=== PATIENT | male | born 1940 | race African-American/Black ===

== ENCOUNTER 2017-08-06 04:45 | Inpatient (IN) | payer OTHER, MEDICAID ==
[2017-08-06] VITALS (8 sets, daily range): BP systolic 105–154; BP diastolic 73–101
[~2017-08-06] VITALS: Ht 188 cm; Wt 78.0 kg
[~2017-08-06 04:45] MED LIST: PROAIR HFA8.5 GM INH
[2017-08-06] MEDS ORDERED: Solu-MEDROL 125mg Inj IVP ONE (05:00)
[2017-08-06] MEDS ORDERED: Nitroglycerin Subl 0.4mg tab SL PRN (05:00)
--- NOTE | 2017-08-06 05:02 | Emergency Room Report ---
History of Present Illness General Chief Complaint: Dyspnea/Respdistress Source: Patient (Leesa Parisi M.D.) Present Illness HPI 76-year-old male with history of COPD/asthma, p/w SOB for 1 day. Patient states SOB began at home. SOB occurs both at rest and on exertion. Also noted to be coughing. Denies any chest pain. Patient has been using albuterol inhaler twice a day Patient does not have nebulizer at home. No recent steroid use. Denies fever, chills. Denies sick contacts or recent travel. Patient denies history of ICU admissions, intubations, or usage of BIPAP for COPD. (Leesa Parisi M.D.) Allergies: Coded Allergies: NO KNOWN ALLERGIES (Unverified Allergy, Unknown, 12/25/14) Patient History Past Medical History: see triage record Past Surgical History: none Pertinent Family History: none Reviewed Nursing Documentation: PMH: Agreed; PSxH: Agreed (Leesa Parisi M.D. ) Nursing Documentation-PMH Past Medical History: No History, Except For Hx Asthma: Yes Hx Gastrointestinal Problems: No - Appendectomy when he was 7. (Leesa Parisi M.D.) Review of Systems All Other Systems: negative except mentioned in HPI (Leesa Parisi M.D.) Physical Exam Vital Signs Date Time Temp Pulse Resp B/P (MAP) Pulse Ox O2 Delivery O2 Flow Rate FiO2 08/06/17 04:36 97.9 97 25 143/104 94 Simple Mask 10.0 97.9 Sp02 EP Interpretation: reviewed, normal General Appearance: alert, GCS 15, non-toxic, moderate distress Head: normocephalic, atraumatic Eyes: bilateral eye normal inspection, bilateral eye PERRL, bilateral eye EOMI ENT: normal ENT inspection, normal pharynx, normal voice, moist mucus membranes Neck: normal inspection, full range of motion, supple Respiratory: respiratory distress, rales, speaking full sentences, wheezing Cardiovascular #1: normal inspection, regular rate, rhythm, normal capillary refill Cardiovascular #2: 2+ radial (R), 2+ radial (L) Gastrointestinal: normal inspection, non tender, soft, non-distended, no guarding Musculoskeletal: normal inspection, back normal, normal range of motion, non- tender Neurologic: normal inspection, alert, oriented x3, responsive, motor strength/ tone normal, sensory intact, normal gait, speech normal Psychiatric: normal inspection, judgement/insight normal, memory normal Skin: normal inspection, normal color, no rash, warm/dry, well hydrated, normal turgor (Leesa Parisi M.D.) Medical Decision Making Diagnostic Impression: Primary Impression: Respiratory distress Additional Impressions: Pneumonia CHF (congestive heart failure) Renal insufficiency Elevated troponin I level NSTEMI (non-ST elevated myocardial infarction) ER Course 76-year-old male with pmhx of COPD p/w SOB for 1 days. DDX: COPD exacerbation, CHF, ACS, pneumonia Plan: IV access, school bus monitor, O2 nasal cannula, EKG, CXR obtain basic labs including blood gas, troponin, Duonebs, steroids, consider mag, Will consider BIPAP for persistent or worsening respiratory status ER course: Bedside ultrasound performed by me, no pericardial effusion, bilateral B lines indicating pulmonary edema Nitroglycerin and Lasix given pt already feeling much better upon arrival to ED EKG is concerning however pt not having any cp, no comparison Signed out patient to Dr Castro 76 yo M with SOB - likely 2/2 to chf/pna -pending labs Disposition: Admission to [facility], Dr Fan covering Dr Pineda Please note that this Emergency Department Report was dictated using [employer] box operator technology software, occasionally this can lead to erroneous entry secondary to interpretation by the dictation equipment. EKG Diagnostic Results EP Interpretation: Yes Rate: normal Rhythm: NSR ST Segments: ST depressions and T-wave inversions noted in V4 V5 V6 ASA given to patient: Y Rhythm Strip EP Interpretation: Yes Rate: 90 Rhythm: NSR, no PVCs, no ectopy Chest X-ray CXR: Ordered: Yes 1 view Indication: SOB EP interpretation: Yes Interpretation: Cardiomegaly, pulmonary vascular congestion, possible right- sided infiltrate Impression: Cardiomegaly, pulmonary vascular congestion, possible right-sided infiltrate Electronically signed by Leesa Parisi MD (Leesa aPrisi M.D.) ER Course This patient was primarily seen by Dr. Parisi. Please see her note for full history and physical. There were some labs that were pending at the time I assumed care of this patient. The patient was awaiting admission for diagnosis of pneumonia and congestive heart failure. The patient's troponin came back elevated at 2.5. The patient does have renal insufficiency, however, I would not expect the patient's renal function to interfere with this test. The patient was given aspirin and Lovenox. I did call Dr. Ike raya educate him on this elevated troponin. The patient underwent a repeat EKG that was unchanged from the one from earlier. The EKG has persistent ST segment depressions consistent with a lateral location of ischemia. There is no older EKG available for comparison. I decided that given the patient's multiple comorbidities and chronic medical conditions that this patient should be upgraded to the ICU step down. This patient is critically ill. This patient required complex medical decision- making, aggressive intervention, extensive laboratory workup and monitoring. Critical care time: 35 minutes. Laboratory Tests Test 08/06/17 04:51 08/06/17 05:55 Arterial Blood pH 7.363 (7.350-7.450) Arterial Blood Partial Pressure CO2 45.9 mmHg (35.0-45.0) H Arterial Blood Partial Pressure O2 62.0 mmHg (75.0-100.0) L Arterial Blood HCO3 25.5 mmol/L (22.0-26.0) Arterial Blood Oxygen Saturation 91.1 % (92.0-98.0) L Arterial Blood Base Excess -0.2 John Test Positive White Blood Count 6.2 K/UL (4.8-10.8) Red Blood Count 4.83 M/UL (4.70-6.10) Hemoglobin 13.6 G/DL (14.2-18.0) L Hematocrit 41.3 % (42.0-52.0) L Mean Corpuscular Volume 86 FL (80-99) Mean Corpuscular Hemoglobin 28.1 PG (27.0-31.0) Mean Corpuscular Hemoglobin Concent 32.8 G/DL (32.0-36.0) Red Cell Distribution Width 12.6 % (11.6-14.8) Platelet Count 139 K/UL (150-450) L Mean Platelet Volume 11.3 FL (6.5-10.1) H Neutrophils (%) (Auto) 66.3 % (45.0-75.0) Lymphocytes (%) (Auto) 20.3 % (20.0-45.0) Monocytes (%) (Auto) 8.9 % (1.0-10.0) Eosinophils (%) (Auto) 3.6 % (0.0-3.0) H Basophils (%) (Auto) 0.9 % (0.0-2.0) Prothrombin Time 9.7 SEC (9.30-11.50) Prothrombin Time INR 0.9 (0.9-1.1) PTT 24 SEC (23-33) Urine Color Pale yellow Urine Appearance Clear Urine pH 5 (4.5-8.0) Urine Specific [place] 1.015 (1.005-1.035) Urine Protein 3+ (NEGATIVE) H Urine Glucose (UA) Negative (NEGATIVE) Urine Ketones Negative (NEGATIVE) Urine Occult Blood Negative (NEGATIVE) Urine Nitrite Negative (NEGATIVE) Urine Bilirubin Negative (NEGATIVE) Urine Urobilinogen Normal MG/DL (0.0-1.0) Urine Leukocyte Esterase Negative (NEGATIVE) Urine RBC 0-2 /HPF (0 - 0) H Urine WBC 0 /HPF (0 - 0) Urine Squamous Epithelial Cells Few /LPF (NONE/OCC) Urine Bacteria None /HPF (NONE) Sodium Level 142 MMOL/L (136-145) Potassium Level 3.9 MMOL/L (3.5-5.1) Chloride Level 105 MMOL/L (98-107) Carbon Dioxide Level 30 MMOL/L (21-32) Anion Gap 7 mmol/L (5-15) Blood Urea Nitrogen 41 mg/dL (7-18) H Creatinine 1.9 MG/DL (0.55-1.30) H Estimate Glomerular Filtration Rate mL/min (>60) Glucose Level 159 MG/DL (74-106) H Lactic Acid Level 1.30 mmol/L (0.66-2.22) Calcium Level 9.4 MG/DL (8.5-10.1) Total Bilirubin 0.4 MG/DL (0.2-1.0) Aspartate Amino Transferase (AST) 45 U/L (15-37) H Alanine Aminotransferase (ALT) 52 U/L (12-78) Alkaline Phosphatase 91 U/L (46-116) Troponin I 2.588 ng/mL (0.000-0.056) Pro-B-Type Natriuretic Peptide 4783 pg/mL (0-125) H Total Protein 7.1 G/DL (6.4-8.2) Albumin 3.5 G/DL (3.4-5.0) Globulin 3.6 g/dL Albumin/Globulin Ratio 1.0 (1.0-2.7) (CHRIS STEVENSON D.O.) EKG Diagnostic Results Rate: normal Rhythm: NSR ST Segments: other Other Impression ST segment depressions in leads I, II, V4, V5, V6 (CHRIS STEVENSON D.O.) Rhythm Strip Diag. Results EP Interpretation: yes Rate: 90's Rhythm: NSR, no PVC's, other - PAC's (CHRIS STEVENSON D.O.) Last Vital Signs Date Time Temp Pulse Resp B/P (MAP) Pulse Ox O2 Delivery O2 Flow Rate FiO2 08/06/17 04:43 97 25 Simple Mask 10.0 08/06/17 04:36 97.9 143/104 94 97.9 (Leesa Parisi M.D.) Disposition: ADMITTED INPATIENT Condition: Critical Leesa Parisi M.D. Aug 06, 2017 05:02 CHRIS STEVENSON D.O. Aug 06, 2017 07:26
[2017-08-06 06:13] LABS: APPEARANCE,URINE CLEAR; BASOPHILS % (AUTO) 0.9 % (0.0-2.0); BILIRUBIN, URINE NEGATIVE (NEGATIVE); COLOR,URINE PALE YELLOW; EOSINOPHILS % (AUTO) 3.6 % (0.0-3.0); GLUCOSE, URINE (UA) NEGATIVE (NEGATIVE); HEMATOCRIT 41.3 % (42.0-52.0); HEMOGLOBIN 13.6 G/DL (14.2-18.0); KETONES,URINE NEGATIVE (NEGATIVE); LEUKOCYTE ESTERASE ,URINE NEGATIVE (NEGATIVE); LYMPHOCYTES % (AUTO) 20.3 % (20.0-45.0); MEAN CORPUSCULAR VOLUME 86 FL (80-99); MONOCYTES % (AUTO) 8.9 % (1.0-10.0); NEUTROPHILS % (AUTO) 66.3 % (45.0-75.0); NITRITE,URINE NEGATIVE (NEGATIVE); PH,URINE 5 (4.5-8.0); PLATELET COUNT 139 K/UL (150-450); PROTEIN,URINE 3+ (NEGATIVE); RED BLOOD COUNT 4.83 M/UL (4.70-6.10); RED CELL DISTRIBUTION WIDTH 12.6 % (11.6-14.8); UROBILINOGEN,URINE NORMAL MG/DL (0.0-1.0); WHITE BLOOD COUNT 6.2 K/UL (4.8-10.8)
[2017-08-06 06:19] LABS: ANION GAP 7 mmol/L (5-15); BLOOD UREA NITROGEN 41 mg/dL (7-18); CALCIUM 9.4 MG/DL (8.5-10.1); CARBON DIOXIDE 30 MMOL/L (21-32); CHLORIDE 105 MMOL/L (98-107); CREATININE 1.9 MG/DL (0.55-1.30); POTASSIUM 3.9 MMOL/L (3.5-5.1); SODIUM 142 MMOL/L (136-145)
[2017-08-06 06:20] LABS: INR 0.9 (0.9-1.1)
[2017-08-06 06:29] LABS: ALANINE AMINOTRANSFERASE 52 U/L (12-78); ALBUMIN 3.5 G/DL (3.4-5.0); ALKALINE PHOSPHATASE 91 U/L (46-116); ASPARTATE AMINO TRANSFERASE 45 U/L (15-37); BILIRUBIN,TOTAL 0.4 MG/DL (0.2-1.0)
[2017-08-06] MEDS ORDERED: Enoxaparin 80mg Inj SUBQ ONE (07:00)
[2017-08-06] MEDS ORDERED: Aspirin Baby 81mg ORAL ONE (07:00)
[2017-08-06] MEDS ORDERED: Albuterol/Ipratropium 3ml neb HHN PRN (08:30)
[2017-08-06] MEDS ORDERED: Miralax 17gm pkt ORAL PRN (08:30)
[2017-08-06] MEDS ORDERED: Heparin 5000 units/ml inj SUBQ SCH (09:00)
[2017-08-06] MEDS: Pantoprazole Inj IV SCH (09:56)
[2017-08-06] MEDS: Aspirin Baby 81mg ORAL SCH (09:56)
[2017-08-06] MEDS: Docusate 100mg cap ORAL SCH ×2 (09:56→20:50)
--- NOTE | 2017-08-06 10:53 | Cardiac Electrophysiology PN ---
Subjective Subjective [id number] Objective Last 24 Hour Vital Signs Date Time Temp Pulse Resp B/P (MAP) Pulse Ox O2 Delivery O2 Flow Rate FiO2 08/06/17 10:00 97 20 122/92 97 Nasal Cannula 4.0 08/06/17 08:00 92 20 147/85 98 Nasal Cannula 4.0 08/06/17 07:00 101 20 136/90 96 Nasal Cannula 4.0 08/06/17 05:59 98.5 88 20 105/81 93 Nasal Cannula 4.0 98.5 08/06/17 05:05 143/104 08/06/17 04:43 97 25 Simple Mask 10.0 08/06/17 04:36 97.9 97 25 143/104 94 Simple Mask 10.0 97.9 Intake and Output 08/05/17 08/06/17 19:00 07:00 Output Total 560 ml Balance -560 ml Output Urine Total 560 ml # Voids 2 Laboratory Tests Test 08/06/17 04:51 08/06/17 05:55 Arterial Blood pH 7.363 (7.350-7.450) Arterial Blood Partial Pressure CO2 45.9 mmHg (35.0-45.0) H Arterial Blood Partial Pressure O2 62.0 mmHg (75.0-100.0) L Arterial Blood HCO3 25.5 mmol/L (22.0-26.0) Arterial Blood Oxygen Saturation 91.1 % (92.0-98.0) L Arterial Blood Base Excess -0.2 John Test Positive White Blood Count 6.2 K/UL (4.8-10.8) Red Blood Count 4.83 M/UL (4.70-6.10) Hemoglobin 13.6 G/DL (14.2-18.0) L Hematocrit 41.3 % (42.0-52.0) L Mean Corpuscular Volume 86 FL (80-99) Mean Corpuscular Hemoglobin 28.1 PG (27.0-31.0) Mean Corpuscular Hemoglobin Concent 32.8 G/DL (32.0-36.0) Red Cell Distribution Width 12.6 % (11.6-14.8) Platelet Count 139 K/UL (150-450) L Mean Platelet Volume 11.3 FL (6.5-10.1) H Neutrophils (%) (Auto) 66.3 % (45.0-75.0) Lymphocytes (%) (Auto) 20.3 % (20.0-45.0) Monocytes (%) (Auto) 8.9 % (1.0-10.0) Eosinophils (%) (Auto) 3.6 % (0.0-3.0) H Basophils (%) (Auto) 0.9 % (0.0-2.0) Prothrombin Time 9.7 SEC (9.30-11.50) Prothromb Time International Ratio 0.9 (0.9-1.1) Activated Partial Thromboplast Time 24 SEC (23-33) Urine Color Pale yellow Urine Appearance Clear Urine pH 5 (4.5-8.0) Urine Specific [place] 1.015 (1.005-1.035) Urine Protein 3+ (NEGATIVE) H Urine Glucose (UA) Negative (NEGATIVE) Urine Ketones Negative (NEGATIVE) Urine Occult Blood Negative (NEGATIVE) Urine Nitrite Negative (NEGATIVE) Urine Bilirubin Negative (NEGATIVE) Urine Urobilinogen Normal MG/DL (0.0-1.0) Urine Leukocyte Esterase Negative (NEGATIVE) Urine RBC 0-2 /HPF (0 - 0) H Urine WBC 0 /HPF (0 - 0) Urine Squamous Epithelial Cells Few /LPF (NONE/OCC) Urine Bacteria None /HPF (NONE) Sodium Level 142 MMOL/L (136-145) Potassium Level 3.9 MMOL/L (3.5-5.1) Chloride Level 105 MMOL/L (98-107) Carbon Dioxide Level 30 MMOL/L (21-32) Anion Gap 7 mmol/L (5-15) Blood Urea Nitrogen 41 mg/dL (7-18) H Creatinine 1.9 MG/DL (0.55-1.30) H Estimat Glomerular Filtration Rate mL/min (>60) Glucose Level 159 MG/DL (74-106) H Lactic Acid Level 1.30 mmol/L (0.66-2.22) Calcium Level 9.4 MG/DL (8.5-10.1) Total Bilirubin 0.4 MG/DL (0.2-1.0) Aspartate Amino Transf (AST/SGOT) 45 U/L (15-37) H Alanine Aminotransferase (ALT/SGPT) 52 U/L (12-78) Alkaline Phosphatase 91 U/L (46-116) Troponin I 2.588 ng/mL (0.000-0.056) Pro-B-Type Natriuretic Peptide 4783 pg/mL (0-125) H Total Protein 7.1 G/DL (6.4-8.2) Albumin 3.5 G/DL (3.4-5.0) Globulin 3.6 g/dL Albumin/Globulin Ratio 1.0 (1.0-2.7) Jovany Raphael MD Aug 06, 2017 10:53
--- NOTE | 2017-08-06 11:27 | Diagnostic Imaging Report ---
Indication: Chest pain Comparison: 08/04/2006 A single view chest radiograph was obtained. Findings: Patchy infiltrates versus asymmetric pulmonary edema demonstrated bilaterally. Please correlate clinically. The heart is enlarged. Bones are unremarkable. IMPRESSION: Patchy infiltrates versus CHF
[2017-08-06] MEDS: Albuterol/Ipratropium 3ml neb HHN SCH ×2 (13:24→19:49)
--- NOTE | 2017-08-06 16:28 | Consultation ---
Consult Note Assessment/Plan [facility] DICT # [id number] NUNU ARORA M.D. Aug 06, 2017 16:28
[2017-08-06 16:40] LABS: HEMATOCRIT 41.6 % (42.0-52.0); HEMOGLOBIN 13.9 G/DL (14.2-18.0); MEAN CORPUSCULAR VOLUME 84 FL (80-99); PLATELET COUNT 152 K/UL (150-450); RED BLOOD COUNT 4.93 M/UL (4.70-6.10); RED CELL DISTRIBUTION WIDTH 12.8 % (11.6-14.8); WHITE BLOOD COUNT 5.2 K/UL (4.8-10.8)
[2017-08-06 17:02] LABS: ANION GAP 8 mmol/L (5-15); BLOOD UREA NITROGEN 39 mg/dL (7-18); CALCIUM 9.7 MG/DL (8.5-10.1); CARBON DIOXIDE 31 MMOL/L (21-32); CHLORIDE 103 MMOL/L (98-107); CHOLESTEROL 162 MG/DL (< 200); HDL CHOLESTEROL 49 MG/DL (40-60); POTASSIUM 4.6 MMOL/L (3.5-5.1); SODIUM 142 MMOL/L (136-145); TRIGLYCERIDES 77 MG/DL (30-150)
--- NOTE | 2017-08-06 19:30 | Consultation ---
DATE OF CONSULTATION: 08/06/2017 CARDIOLOGY CONSULTATION CONSULTING PHYSICIAN: Jovany Raphael M.D. REFERRING PHYSICIAN: Heena Pineda M.D. REASON FOR CONSULTATION: Elevated troponin and abnormal electrocardiogram. HISTORY OF PRESENT ILLNESS: The patient is a 76-year-old -[place] gentleman with history of asthma and COPD on home oxygen as well as history of hypertension, whose last hospitalization that he says was more than 20 years ago for hernia surgery. 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 The patient came to the emergency for increasing shortness of breath at rest and on exertion and has been coughing. The patient came to the emergency room and noted to have elevated troponin of more than 2.5. His blood pressure was 143/104 and EKG shows sinus rhythm with ST-T wave abnormalities. At the time of my evaluation, the patient denies any chest pain, even though he is still short of breath. PAST MEDICAL HISTORY: Asthma and hypertension. PAST SURGICAL HISTORY: Appendectomy at age of 7. FAMILY HISTORY: Noncontributory. SOCIAL HISTORY: He lives at home. Does not smoke or drink alcohol. REVIEW OF SYSTEMS: Review of systems was performed and was negative other than what was mentioned in the history of present illness. PHYSICAL EXAMINATION: VITAL SIGNS: Blood pressure is 122/92, pulse is 97, respirations 18, and temperature 98.5 degrees. HEAD AND NECK: No JVD. LUNGS: Diffuse wheezing. CARDIOVASCULAR: Regular S1 and S2 with no gallop or murmur. ABDOMEN: Soft. EXTREMITIES: There is no pitting edema. LABORATORY AND DIAGNOSTIC DATA: Sodium 142, potassium 3.9, BUN of 41, creatinine 1.9, and glucose of 159. Troponin is 2.588. White count 6.2, hemoglobin 13.7, hematocrit 41.2, and platelet 139. ASSESSMENT AND PLAN: 1. Elevated troponin. The patient does not have any chest pain, however, shortness of breath could be angina equivalent. His EKG showed widespread ST-T wave abnormalities. In view of his asthma, avoid beta-blockers especially if he is wheezing. Continue aspirin and keep him on Lovenox until further troponins are available. The patient is also getting sublingual nitroglycerin. Add Lipitor to his medical regimen. Obviously, if the troponin levels become significantly elevated, the patient would need cardiac catheterization, but that would risk of developing renal failure in view of his current baseline creatinine is around 2. 2. Congestive heart failure. BNP of around 5000. We will continue Lasix 40 mg IV b.i.d. 3. Chronic obstructive pulmonary disease and asthma, on albuterol and Proventil. 4. Renal failure. Creatinine 1.9. The patient stated he has been taking ibuprofen for a long time and could be the cause of the patient's renal failure. Thank you very much, Dr. Pineda, for allowing me to participate in the care of this patient. Please do not hesitate to contact me for any questions regarding my evaluation. Jovany Raphael M.D. DR: YEYO JOB#: [id number] CC:
[2017-08-06] MEDS: Enoxaparin Sodium 300mg/3ml vial SUBQ SCH (20:49)
--- NOTE | 2017-08-06 22:30 | Consultation ---
DATE OF CONSULTATION: 08/06/2017 PULMONARY CONSULTATION CONSULTING PHYSICIAN: Mateo Pineda M.D. REFERRING PHYSICIAN: Mike Branch M.D. REASON FOR CONSULTATION: COPD exacerbation. HISTORY OF PRESENT ILLNESS: The patient is a 76-year-old male extensive former smoker with a history of asthma versus COPD, only on ProAir at home who presents with shortness of breath x1 day. He states he was in his usual state of health when all of a sudden he felt acute dyspnea with wheezing, no coughing, no rhinorrhea. No fevers or chills. No headache or dizziness. No PND or orthopnea. No edema. He used his ProAir inhaler without any relief so he came into the emergency department for further evaluation and management. In the ER, he has been afebrile. Vitals have been stable. He is saturating well on 3 to 4 liters. He did not have leukocytosis. His ABG was 7.36/45/62//. His troponins were positive initial was 2.5, followup was 1.8. He also had a creatinine of 1.9 with a BUN of 41. It is unclear if acute or chronic. His BNP was 4783. Urinalysis 3+ protein. Chest x-ray done in the emergency department showed patchy bilateral infiltrates concerning for pulmonary edema versus infectious infiltrates. The patient is currently on a treatment dose of low molecular weight heparin and is on Lasix 40 IV b.i.d. He is also on around the clock and p.r.n. DuoNebs as well as Levaquin for community-acquired pneumonia. PAST MEDICAL HISTORY: COPD versus asthma. (first diagnosed as a child, never hospitalized, quiescent as an adult, worsened by his smoking, currently treated with p.r.n. ProAir only). PAST SURGICAL HISTORY: Appendectomy. ALLERGIES: No known drug allergies. MEDICATIONS: Prior to admission, medications ProAir. SOCIAL HISTORY: Extensive smoker, quit six months ago. Lives alone. No drug or alcohol use. No pets. No recent travel. FAMILY HISTORY: Noncontributory. REVIEW OF SYSTEMS: Negative other than history of present illness. PHYSICAL EXAMINATION: VITAL SIGNS: Temperature 97.3, pulse 111, blood pressure 164/101, respiratory rate 20, saturating 90% on 4 liters. GENERAL: He is well-developed and well-nourished, in no acute distress. Awake, alert, and oriented x3. HEENT: Normocephalic and atraumatic. Oropharynx is clear with moist mucous membranes. NECK: Supple without lymphadenopathy or jugular venous distention. CHEST: Fairly clear with end-expiratory wheezing and bibasilar rales. HEART: Regular rate and rhythm. ABDOMEN: Soft, nontender, and nondistended. EXTREMITIES: No cyanosis or clubbing. There is trace edema. IMAGING: Chest x-ray study showed some bilateral patchy opacities and pulmonary vascular congestion. LABORATORY AND DIAGNOSTIC DATA: White count 6.2, hemoglobin 13.6, and platelet count 139. ABG, 7.36/45/62/25/91. INR is 0.9. Sodium 140, potassium 4, chloride 105, bicarbonate 30, BUN 41, creatinine 1.1. Calcium 9.4. Lactic acid 1.3, glucose 159, AST 45, ALT 52, alkaline phosphatase 91. Troponin 2.55, followup 1.83. BNP 4783. Total protein 7.1, albumin 3.5, globulin 3.0. ASSESSMENT: The patient is a 76-year-old male, extensive former smoker with a history of asthma versus COPD presenting with acute dyspnea likely secondary to acute decompensated heart failure versus an exacerbation of his underlying lung disease. I suspect the opacity seen on chest x-ray represent pulmonary edema and not true infectious infiltrate. He does have elevated cardiac biomarkers likely secondary to demand ischemia versus ACS. Venous thromboembolism is a possibility given the hypoxemia and acute onset but it is less likely. PROBLEM LIST: 1. Acute hypoxemic and hypercapnic respiratory failure. 2. Likely congestive heart failure admitted with acute decompensated heart failure. 3. Bilateral pulmonary opacities likely representing edema but cannot rule out infectious infiltrate. 4. Asthma versus COPD acute exacerbation. 5. Elevated cardiac biomarkers likely secondary to demand ischemia versus ACS. 6. Abnormal creatinine and likely NANCY, possible cardiorenal syndrome. TREATMENT PLAN: 1. Optimize pulmonary hygiene/mobilize as tolerated. 2. Titrate down FiO2 to keep saturations greater than 90%. 3. [id number] and p.r.n. DuoNebs. 4. We will start prednisone 60 mg p.o. daily (today is day 1). 5. Continue Levaquin for now (today is day 1) . 6. Monitor volumes and renal function, continue IV diuresis as tolerated. 7. Follow up echocardiogram. 8. Follow Cardiology recommendations. 9. We will need ischemia evaluation at some point. 10. Continue low-molecular weight heparin for treatment of ACS. 11. Aspiration precautions. 12. DVT prophylaxis. The patient is on anticoagulation. 13. We will check a D-dimer and a duplex of the lower extremities. 14. Will repeat chest x-ray in one to two days. If persistent infiltrates, we will obtain a CT scan of the chest. Dr. Branch, thank you for allowing me to assist in the care of your patient. If I may be of any assistance in the future, please do not hesitate to ask. Mateo Pineda M.D. DR: Elida JOB#: [id number] CC:
--- NOTE | 2017-08-06 23:30 | History and Physical ---
History of Present Illness General Date patient seen: Aug 06, 2017 Time patient seen: 15:22 Reason for Hospitalization: Dyspnea/Respdistress Present Illness HPI 76 y/o male with a PMH of asthma presented with SOB since yesterday. Patient was seen in the ED and EKG showed ST depressions and T wave inversions in the anterior leads. Troponin was also elevated to 2.5 and Cr was elevated to 1.9. Patient's BNP was 4083. CXR showed patchy bilateral infiltrates vs. CHF. Patient was also started on IV steroids, duonebs, and levaquin for asthma exacerbation due to PNA. Patient was started on lovenox as well for elevated troponins. Bedside ultrasound was performed which showed no pericardial effusion but pulmonary edema with bilateral B lines present. Patient was also given nitroglycerin and lasix for this. Patient was further stabilized and transferred to ICU step-down. At this time, patient denies any fevers, chills, chest pain, sob, nausea/vomiting, abdominal pain. Denies any history of kidney disease. Denies any surgeries in the past. Allergies: Coded Allergies: NO KNOWN ALLERGIES (Unverified Allergy, Unknown, 12/25/14) Medication History Scheduled Albuterol Sulfate* (Proair Hfa*), 2 PUFFS INH Q6H, (Reported) Patient History History Provided By: Patient Healthcare decision maker Resuscitation status Full Code Advanced Directive on File Review of Systems All Other Systems: negative except mentioned in HPI Physical Exam General Appearance: alert, mild distress HEENT: normocephalic, atraumatic Neck: non-tender, normal alignment, supple Respiratory/Chest: chest wall non-tender, lungs clear, normal breath sounds Cardiovascular/Chest: normal peripheral pulses, normal rate, regular rhythm Abdomen: normal bowel sounds, non tender, soft Extremities: normal range of motion, non-tender, normal inspection Skin Exam: normal pigmentation, warm/dry 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, no motor/sensory deficits, alert, oriented x 3 Last 24 Hour Vital Signs Date Time Temp Pulse Resp B/P (MAP) Pulse Ox O2 Delivery O2 Flow Rate FiO2 08/06/17 20:00 98.0 105 24 146/84 98 Nasal Cannula 3.0 98.0 08/06/17 19:59 102 18 99 Nasal Cannula 3.0 32 08/06/17 19:49 98 Nasal Cannula 3.0 32 08/06/17 19:49 102 18 98 Nasal Cannula 3.0 32 08/06/17 19:49 Nasal Cannula 3.0 32 08/06/17 19:03 102 08/06/17 16:00 85 08/06/17 16:00 97.5 91 20 135/83 100 Nasal Cannula 3.0 97.5 08/06/17 13:39 90 18 96 Nasal Cannula 3.0 32 08/06/17 13:34 98 3.0 08/06/17 13:24 90 18 Nasal Cannula 4.0 36 08/06/17 13:24 90 18 98 Nasal Cannula 4.0 36 08/06/17 12:00 97.7 97 18 138/73 98 Nasal Cannula 4.0 97.7 08/06/17 11:47 102 08/06/17 10:40 97.3 111 20 154/101 90 Nasal Cannula 4.0 97.3 08/06/17 10:30 98.5 97 20 122/92 97 Nasal Cannula 4.0 98.5 08/06/17 10:00 97 20 122/92 97 Nasal Cannula 4.0 08/06/17 08:00 92 20 147/85 98 Nasal Cannula 4.0 08/06/17 07:00 101 20 136/90 96 Nasal Cannula 4.0 08/06/17 05:59 98.5 88 20 105/81 93 Nasal Cannula 4.0 98.5 08/06/17 05:05 143/104 08/06/17 04:43 97 25 Simple Mask 10.0 08/06/17 04:36 97.9 97 25 143/104 94 Simple Mask 10.0 97.9 Intake and Output 08/05/17 08/06/17 19:00 07:00 Output Total 560 ml Balance -560 ml Output Urine Total 560 ml # Voids 2 Laboratory Tests Test 08/06/17 04:51 08/06/17 05:55 08/06/17 11:15 08/06/17 16:25 Arterial Blood pH 7.363 (7.350-7.450) Arterial Blood Partial Pressure CO2 45.9 mmHg (35.0-45.0) H Arterial Blood Partial Pressure O2 62.0 mmHg (75.0-100.0) L Arterial Blood HCO3 25.5 mmol/L (22.0-26.0) Arterial Blood Oxygen Saturation 91.1 % (92.0-98.0) L Arterial Blood Base Excess -0.2 John Test Positive White Blood Count 6.2 K/UL (4.8-10.8) 5.2 K/UL (4.8-10.8) Red Blood Count 4.83 M/UL (4.70-6.10) 4.93 M/UL (4.70-6.10) Hemoglobin 13.6 G/DL (14.2-18.0) L 13.9 G/DL (14.2-18.0) L Hematocrit 41.3 % (42.0-52.0) L 41.6 % (42.0-52.0) L Mean Corpuscular Volume 86 FL (80-99) 84 FL (80-99) Mean Corpuscular Hemoglobin 28.1 PG (27.0-31.0) 28.3 PG (27.0-31.0) Mean Corpuscular Hemoglobin Concent 32.8 G/DL (32.0-36.0) 33.5 G/DL (32.0-36.0) Red Cell Distribution Width 12.6 % (11.6-14.8) 12.8 % (11.6-14.8) Platelet Count 139 K/UL (150-450) L 152 K/UL (150-450) Mean Platelet Volume 11.3 FL (6.5-10.1) H 11.9 FL (6.5-10.1) H Neutrophils (%) (Auto) 66.3 % (45.0-75.0) % (45.0-75.0) Lymphocytes (%) (Auto) 20.3 % (20.0-45.0) % (20.0-45.0) Monocytes (%) (Auto) 8.9 % (1.0-10.0) % (1.0-10.0) Eosinophils (%) (Auto) 3.6 % (0.0-3.0) H % (0.0-3.0) Basophils (%) (Auto) 0.9 % (0.0-2.0) % (0.0-2.0) Prothrombin Time 9.7 SEC (9.30-11.50) Prothromb Time International Ratio 0.9 (0.9-1.1) Activated Partial Thromboplast Time 24 SEC (23-33) Urine Color Pale yellow Urine Appearance Clear Urine pH 5 (4.5-8.0) Urine Specific [place] 1.015 (1.005-1.035) Urine Protein 3+ (NEGATIVE) H Urine Glucose (UA) Negative (NEGATIVE) Urine Ketones Negative (NEGATIVE) Urine Occult Blood Negative (NEGATIVE) Urine Nitrite Negative (NEGATIVE) Urine Bilirubin Negative (NEGATIVE) Urine Urobilinogen Normal MG/DL (0.0-1.0) Urine Leukocyte Esterase Negative (NEGATIVE) Urine RBC 0-2 /HPF (0 - 0) H Urine WBC 0 /HPF (0 - 0) Urine Squamous Epithelial Cells Few /LPF (NONE/OCC) Urine Bacteria None /HPF (NONE) Sodium Level 142 MMOL/L (136-145) 142 MMOL/L (136-145) Potassium Level 3.9 MMOL/L (3.5-5.1) 4.6 MMOL/L (3.5-5.1) Chloride Level 105 MMOL/L (98-107) 103 MMOL/L (98-107) Carbon Dioxide Level 30 MMOL/L (21-32) 31 MMOL/L (21-32) Anion Gap 7 mmol/L (5-15) 8 mmol/L (5-15) Blood Urea Nitrogen 41 mg/dL (7-18) H 39 mg/dL (7-18) H Creatinine 1.9 MG/DL (0.55-1.30) H 2.0 MG/DL (0.55-1.30) H Estimat Glomerular Filtration Rate mL/min (>60) mL/min (>60) Glucose Level 159 MG/DL (74-106) H 219 MG/DL (74-106) H Lactic Acid Level 1.30 mmol/L (0.66-2.22) Calcium Level 9.4 MG/DL (8.5-10.1) 9.7 MG/DL (8.5-10.1) Total Bilirubin 0.4 MG/DL (0.2-1.0) Aspartate Amino Transf (AST/SGOT) 45 U/L (15-37) H Alanine Aminotransferase (ALT/SGPT) 52 U/L (12-78) Alkaline Phosphatase 91 U/L (46-116) Troponin I 2.588 ng/mL (0.000-0.056) 1.835 ng/mL (0.000-0.056) Pro-B-Type Natriuretic Peptide 4783 pg/mL (0-125) H Total Protein 7.1 G/DL (6.4-8.2) Albumin 3.5 G/DL (3.4-5.0) Globulin 3.6 g/dL Albumin/Globulin Ratio 1.0 (1.0-2.7) Differential Total Cells Counted 100 Neutrophils % (Manual) 90 % (45-75) H Lymphocytes % (Manual) 6 % (20-45) L Monocytes % (Manual) 2 % (1-10) Eosinophils % (Manual) 0 % (0-3) Basophils % (Manual) 0 % (0-2) Band Neutrophils 2 % (0-8) Platelet Estimate Adequate Platelet Morphology Normal Red Blood Cell Morphology Normal Hemoglobin A1c 6.4 % (4.3-6.0) H Magnesium Level 1.8 MG/DL (1.8-2.4) Triglycerides Level 77 MG/DL (30-150) Cholesterol Level 162 MG/DL (< 200) LDL Cholesterol 103 mg/dL (<100) H HDL Cholesterol 49 MG/DL (40-60) Cholesterol/HDL Ratio 3.3 (3.3-4.4) Thyroid Stimulating Hormone (TSH) 0.588 uiU/mL (0.358-3.740) Test 08/06/17 19:00 D-Dimer 0.29 mg/L FEU (0.00-0.49) Troponin I 1.723 ng/mL (0.000-0.056) Height (Feet): 6 Height (Inches): 2.00 Weight (Pounds): 178 Medications Current Medications Medications (Trade) Dose Ordered Sig/Yash Route PRN Reason Start Time Stop Time Status Last Admin Dose Admin Acetaminophen (Tylenol) 650 mg Q4H PRN ORAL Mild Pain (Pain Scale 1-3) 08/06/17 08:30 09/05/17 08:29 Acetaminophen (Tylenol) 650 mg Q4H PRN ORAL fever (temp>100.5F) 08/06/17 08:30 09/05/17 08:29 Albuterol/ Ipratropium (Albuterol/ Ipratropium) 3 ml Q2H PRN HHN Shortness of Breath 08/06/17 08:30 08/11/17 08:29 Albuterol/ Ipratropium (Albuterol/ Ipratropium) 3 ml Q6HRT HHN 08/06/17 13:00 08/11/17 12:59 08/06/17 19:49 Aspirin (ASA) 81 mg DAILY ORAL 08/06/17 09:00 09/05/17 08:59 08/06/17 09:56 Bisacodyl (Dulcolax) 10 mg DAILYPRN PRN RECTAL Constipation 08/06/17 08:30 09/05/17 08:29 Dextrose (Dextrose 50%) 25 ml STAT PRN IV Hypoglycemia 08/06/17 08:30 09/05/17 08:29 Dextrose (Dextrose 50%) 50 ml STAT PRN IV Hypoglycemia 08/06/17 08:30 09/05/17 08:29 Docusate Sodium (Colace) 100 mg EVERY 12 HOURS ORAL 08/06/17 09:00 09/05/17 08:59 08/06/17 20:50 Enoxaparin Sodium (Lovenox) 90 mg Q12HR SUBQ 08/06/17 19:30 09/05/17 19:29 08/06/17 20:49 Furosemide (Lasix) 40 mg EVERY 12 HOURS IV 08/06/17 12:00 09/05/17 11:59 08/06/17 20:50 Ondansetron HCl (Zofran) 4 mg Q6H PRN IVP Nausea & Vomiting 08/06/17 08:30 09/05/17 08:29 Pantoprazole (Protonix) 40 mg DAILY IV 08/06/17 09:00 09/05/17 08:59 08/06/17 09:56 Polyethylene Glycol (Miralax) 17 gm DAILYPRN PRN ORAL Constipation 08/06/17 08:30 09/05/17 08:29 Assessment/Plan Problem List: (1) NSTEMI (non-ST elevated myocardial infarction) ICD Codes: I21.4 - Non-ST elevation (NSTEMI) myocardial infarction SNOMED: 798535279 (2) Pneumonia ICD Codes: J18.9 - Pneumonia, unspecified organism SNOMED: 440996594 (3) Elevated troponin I level ICD Codes: R74.8 - Abnormal levels of other serum enzymes SNOMED: 806836635 (4) Acute kidney injury ICD Codes: N17.9 - Acute kidney failure, unspecified SNOMED: 94451137 (5) Acute systolic congestive heart failure ICD Codes: I50.21 - Acute systolic (congestive) heart failure SNOMED: 73481796, 931860155 (6) Pulmonary hypertension ICD Codes: I27.20 - Pulmonary hypertension, unspecified SNOMED: 60249765 (7) Asthma exacerbation ICD Codes: J45.901 - Unspecified asthma with (acute) exacerbation SNOMED: 264926158 (8) Acute respiratory failure with hypoxia ICD Codes: J96.01 - Acute respiratory failure with hypoxia SNOMED: 73633904, 483070422 Status: stable, progressing Assessment/Plan - Admit to inpatient - Pulm and cards consulted. Appreciate rec's - EKG with ST depressions and T wave inversions in leads V4, 5, 6 - Trend trops 2.5 --> 1.8. - continue lovenox for anticoagulation - s/p nitroglycerin for pulmonary edema - f/u CATRINA - IV lasix 40mg BID. monitor urine output and watch Cr closely - Trend Cr 1.9 --> - lactic acid 1.9 - f/u blood cultures. UA culture - CXR showing patchy infiltrates vs. CHF. f/u serial CXR - s/p IV methylprednisolone 125mg. continue IV solumedrol 60mg and taper per pulm - IV levaquin - duonebs - O2 prn to maintain O2 sat > 92% - ABGs prn DVT ppx: on lovenox for [place] Once the patient is medically stable, I anticipate the patient to be discharged to: home with home health Total time spent: 70 minutes More than 50% of the time was spent in care and coordination of the patient. Case was d/w patient, RN, all consultants. Reena Stephenson N.P. Aug 06, 2017 23:30
[2017-08-07] VITALS: BP 147/87
[2017-08-07] MEDS: Albuterol/Ipratropium 3ml neb HHN SCH ×2 (02:12→08:17)
[2017-08-07 03:59] LABS: HEMATOCRIT 39.8 % (42.0-52.0); HEMOGLOBIN 13.6 G/DL (14.2-18.0); MEAN CORPUSCULAR VOLUME 85 FL (80-99); PLATELET COUNT 147 K/UL (150-450); RED BLOOD COUNT 4.71 M/UL (4.70-6.10); RED CELL DISTRIBUTION WIDTH 12.5 % (11.6-14.8); WHITE BLOOD COUNT 5.8 K/UL (4.8-10.8)
[2017-08-07 04:00] VITALS: BP 140/81
[2017-08-07 04:26] LABS: ANION GAP 11 mmol/L (5-15); BLOOD UREA NITROGEN 47 mg/dL (7-18); CALCIUM 9.4 MG/DL (8.5-10.1); CARBON DIOXIDE 29 MMOL/L (21-32); CHLORIDE 100 MMOL/L (98-107); CREATININE 2.6 MG/DL (0.55-1.30); SODIUM 140 MMOL/L (136-145)
[2017-08-07 08:00] VITALS: BP 141/89
--- NOTE | 2017-08-07 08:46 | Pulmonology Progress Note ---
Assessment/Plan Assessment/Plan ASSESSMENT: The patient is a 76-year-old male, extensive former smoker with a history of asthma versus COPD presenting with acute dyspnea likely secondary to acute decompensated heart failure versus an exacerbation of his underlying lung disease. PROBLEM LIST: 1. Acute hypoxemic and hypercapnic respiratory failure. 2. Likely congestive heart failure admitted with acute decompensated heart failure. 3. Bilateral pulmonary opacities, edema vs infectious infiltrate. 4. Asthma versus COPD acute exacerbation. 5. Elevated cardiac biomarkers likely secondary to demand ischemia versus ACS. 6. Abnormal creatinine and likely NANCY, possible cardiorenal syndrome. TREATMENT PLAN: 1. Optimize pulmonary hygiene/mobilize as tolerated. 2. Titrate down FiO2 to keep saturations greater than 90%. 3. Change DUOnebs to Levalbuterol and Atrovent 4. D/C Pred, start SM 60 IV BID and taper 5. Continue Levaquin for now (D2) . 6. Monitor volumes and renal function, continue Lasix for now 7. Follow up echocardiogram. 8. Follow Cardiology recommendations. 9. We will need ischemia evaluation at some point. 10. Continue low-molecular weight heparin for treatment of ACS. 11. Aspiration precautions. 12. DVT prophylaxis. The patient is on anticoagulation. 13. F/U D-dimer and a duplex of the lower extremities. 14. CT chest Subjective Allergies: Coded Allergies: NO KNOWN ALLERGIES (Unverified Allergy, Unknown, 12/25/14) Subjective AFVSS, stable O2 needs, did not use BiPAP O/N Less cough, less wheezing, less SOB, no F/C Cr 2.6, trops downtrending Objective Last 24 Hour Vital Signs Date Time Temp Pulse Resp B/P (MAP) Pulse Ox O2 Delivery O2 Flow Rate FiO2 08/07/17 08:17 105 20 98 Nasal Cannula 3.0 32 08/07/17 08:15 98 Nasal Cannula 3.0 32 08/07/17 08:14 Nasal Cannula 3.0 32 08/07/17 04:00 96.8 104 20 140/81 94 Nasal Cannula 3.0 96.8 08/07/17 03:41 106 08/07/17 02:12 Room Air 08/07/17 02:12 Room Air 08/07/17 00:00 97.9 100 24 147/87 97 Nasal Cannula 3.0 97.9 08/07/17 00:00 97 08/06/17 23:11 Facial 35 08/06/17 20:00 98.0 105 24 146/84 98 Nasal Cannula 3.0 98.0 08/06/17 19:59 102 18 99 Nasal Cannula 3.0 32 08/06/17 19:49 98 Nasal Cannula 3.0 32 08/06/17 19:49 102 18 98 Nasal Cannula 3.0 32 08/06/17 19:49 Nasal Cannula 3.0 32 08/06/17 19:03 102 08/06/17 16:00 85 08/06/17 16:00 97.5 91 20 135/83 100 Nasal Cannula 3.0 97.5 08/06/17 13:39 90 18 96 Nasal Cannula 3.0 32 08/06/17 13:34 98 3.0 08/06/17 13:24 90 18 Nasal Cannula 4.0 36 08/06/17 13:24 90 18 98 Nasal Cannula 4.0 36 08/06/17 12:00 97.7 97 18 138/73 98 Nasal Cannula 4.0 97.7 08/06/17 11:47 102 08/06/17 10:40 97.3 111 20 154/101 90 Nasal Cannula 4.0 97.3 08/06/17 10:30 98.5 97 20 122/92 97 Nasal Cannula 4.0 98.5 08/06/17 10:00 97 20 122/92 97 Nasal Cannula 4.0 Intake and Output 08/06/17 08/07/17 19:00 07:00 Intake Total 300 ml 150 ml Output Total 1775 ml 950 ml Balance -1475 ml -800 ml Intake Oral 300 ml 150 ml Output Urine Total 1775 ml 950 ml # Voids 2 # Bowel Movements 1 General Appearance: WD/WN, no acute distress HEENT: normocephalic, atraumatic, anicteric, mucous membranes moist Respiratory/Chest: rhonchi - scattered with BiB rales Cardiovascular: normal peripheral pulses, normal rate, regular rhythm, regularly irregular Abdomen: normal bowel sounds, soft, non tender, no organomegaly, non distended Extremities: no cyanosis, no clubbing, no edema Laboratory Tests 08/06/17 11:15: Troponin I 1.835H 08/06/17 16:25: White Blood Count 5.2, Red Blood Count 4.93, Hemoglobin 13.9L, Hematocrit 41.6L , Mean Corpuscular Volume 84, Mean Corpuscular Hemoglobin 28.3, Mean Corpuscular Hemoglobin Concent 33.5, Red Cell Distribution Width 12.8, Platelet Count 152, Mean Platelet Volume 11.9H, Neutrophils (%) (Auto) , Lymphocytes (%) (Auto) , Monocytes (%) (Auto) , Eosinophils (%) (Auto) , Basophils (%) (Auto) , Differential Total Cells Counted 100, Neutrophils % (Manual) 90H, Lymphocytes % (Manual) 6L, Monocytes % (Manual) 2, Eosinophils % (Manual) 0, Basophils % ( Manual) 0, Band Neutrophils 2, Platelet Estimate Adequate, Platelet Morphology Normal, Red Blood Cell Morphology Normal, Sodium Level 142, Potassium Level 4.6 , Chloride Level 103, Carbon Dioxide Level 31, Anion Gap 8, Blood Urea Nitrogen 39H, Creatinine 2.0H, Estimat Glomerular Filtration Rate , Glucose Level 219H, Hemoglobin A1c 6.4H, Calcium Level 9.7, Magnesium Level 1.8, Triglycerides Level 77, Cholesterol Level 162, LDL Cholesterol 103H, HDL Cholesterol 49, Cholesterol/HDL Ratio 3.3, Thyroid Stimulating Hormone (TSH) 0.588 08/06/17 19:00: Troponin I 1.723H, D-Dimer 0.29 08/07/17 03:00: Troponin I 1.672H, White Blood Count 5.8, Red Blood Count 4.71, Hemoglobin 13.6L , Hematocrit 39.8L, Mean Corpuscular Volume 85, Mean Corpuscular Hemoglobin 28.8 , Mean Corpuscular Hemoglobin Concent 34.1, Red Cell Distribution Width 12.5, Platelet Count 147L, Mean Platelet Volume 10.6H, Neutrophils (%) (Auto) , Lymphocytes (%) (Auto) , Monocytes (%) (Auto) , Eosinophils (%) (Auto) , Basophils (%) (Auto) , Sodium Level 140, Potassium Level 4.0, Chloride Level 100 , Carbon Dioxide Level 29, Anion Gap 11, Blood Urea Nitrogen 47H, Creatinine 2.6H, Estimat Glomerular Filtration Rate , Glucose Level 201H, Calcium Level 9.4 , Magnesium Level 1.5L, Pro-B-Type Natriuretic Peptide 5877H Current Medications Medications (Trade) Dose Ordered Sig/Yash Route PRN Reason Start Time Stop Time Status Last Admin Dose Admin Acetaminophen (Tylenol) 650 mg Q4H PRN ORAL Mild Pain (Pain Scale 1-3) 08/06/17 08:30 09/05/17 08:29 Acetaminophen (Tylenol) 650 mg Q4H PRN ORAL fever (temp>100.5F) 08/06/17 08:30 09/05/17 08:29 Albuterol/ Ipratropium (Albuterol/ Ipratropium) 3 ml Q2H PRN HHN Shortness of Breath 08/06/17 08:30 08/11/17 08:29 Aspirin (ASA) 81 mg DAILY ORAL 08/06/17 09:00 09/05/17 08:59 08/06/17 09:56 Bisacodyl (Dulcolax) 10 mg DAILYPRN PRN RECTAL Constipation 08/06/17 08:30 09/05/17 08:29 Dextrose (Dextrose 50%) 25 ml STAT PRN IV Hypoglycemia 08/06/17 08:30 09/05/17 08:29 Dextrose (Dextrose 50%) 50 ml STAT PRN IV Hypoglycemia 08/06/17 08:30 09/05/17 08:29 Docusate Sodium (Colace) 100 mg EVERY 12 HOURS ORAL 08/06/17 09:00 09/05/17 08:59 08/06/17 20:50 Enoxaparin Sodium (Lovenox) 90 mg Q12HR SUBQ 08/06/17 19:30 09/05/17 19:29 08/06/17 20:49 Furosemide (Lasix) 40 mg EVERY 12 HOURS IV 08/06/17 12:00 09/05/17 11:59 08/06/17 20:50 Levalbuterol HCl (Xopenex) 1.25 mg Q6HRT HHN 08/07/17 12:00 08/12/17 11:59 Ondansetron HCl (Zofran) 4 mg Q6H PRN IVP Nausea & Vomiting 08/06/17 08:30 09/05/17 08:29 Pantoprazole (Protonix) 40 mg DAILY IV 08/06/17 09:00 09/05/17 08:59 08/06/17 09:56 Polyethylene Glycol (Miralax) 17 gm DAILYPRN PRN ORAL Constipation 4/12/18 08:30 09/05/17 08:29 NUNU ARORA M.D. Aug 07, 2017 08:46
[2017-08-07] MEDS ORDERED: Solu-MEDROL 125mg Inj IVP SCH (09:30)
[2017-08-07] MEDS ORDERED: LORazepam Inj 2mg/ml 1ml IV PRN (09:30)
[2017-08-07] MEDS: Pantoprazole Inj IV SCH (10:30)
[2017-08-07] MEDS: Docusate 100mg cap ORAL SCH (10:30)
[2017-08-07] MEDS: Enoxaparin Sodium 300mg/3ml vial SUBQ SCH (10:30)
[2017-08-07] MEDS: Aspirin Baby 81mg ORAL SCH (10:30)
[2017-08-07] MEDS ORDERED: Levalbuterol Inh UD 1.25mg/0.5ml HHN SCH (12:00)
--- NOTE | 2017-08-07 12:46 | Consultation ---
History of Present Illness General Date patient seen: Aug 06, 2017 Chief Complaint: Dyspnea/Respdistress Present Illness HPI 76 y/o male with a PMH of asthma presented with SOB since yesterday. Patient was seen in the ED and EKG showed ST depressions and T wave inversions in the anterior leads. the pt wa having waxing and waning of consciousness and yelling Allergies: Coded Allergies: NO KNOWN ALLERGIES (Unverified Allergy, Unknown, 12/25/14) Medication History Scheduled Albuterol Sulfate* (Proair Hfa*), 2 PUFFS INH Q6H, (Reported) Patient History Limited by: medical condition History Provided By: Patient, Medical Record, PMD Healthcare decision maker Resuscitation status Full Code Advanced Directive on File Past Medical/Surgical History Past Medical/Surgical History: (1) Episode of generalized weakness (2) Episode of generalized weakness (3) Pulmonary hypertension (4) Acute systolic congestive heart failure (5) Asthma exacerbation (6) Acute kidney injury (7) Acute respiratory failure with hypoxia Review of Systems Psychiatric: Reports: prior hx, anxiety, depressed feelings Physical Exam General Appearance: no apparent distress, alert, confused, agitated Last 24 Hour Vital Signs Date Time Temp Pulse Resp B/P (MAP) Pulse Ox O2 Delivery O2 Flow Rate FiO2 08/07/17 08:27 105 20 98 Nasal Cannula 3.0 32 08/07/17 08:17 105 20 98 Nasal Cannula 3.0 32 08/07/17 08:15 98 Nasal Cannula 3.0 32 08/07/17 08:14 Nasal Cannula 3.0 32 08/07/17 08:00 99.0 101 19 141/89 99 Nasal Cannula 2.0 99.0 08/07/17 07:53 122 08/07/17 04:00 96.8 104 20 140/81 94 Nasal Cannula 3.0 96.8 08/07/17 03:41 106 08/07/17 02:12 Room Air 08/07/17 02:12 Room Air 08/07/17 00:00 97.9 100 24 147/87 97 Nasal Cannula 3.0 97.9 08/07/17 00:00 97 08/06/17 23:11 Facial 35 08/06/17 20:00 98.0 105 24 146/84 98 Nasal Cannula 3.0 98.0 08/06/17 19:59 102 18 99 Nasal Cannula 3.0 32 08/06/17 19:49 98 Nasal Cannula 3.0 32 08/06/17 19:49 102 18 98 Nasal Cannula 3.0 32 08/06/17 19:49 Nasal Cannula 3.0 32 08/06/17 19:03 102 08/06/17 16:00 85 08/06/17 16:00 97.5 91 20 135/83 100 Nasal Cannula 3.0 97.5 08/06/17 13:39 90 18 96 Nasal Cannula 3.0 32 08/06/17 13:34 98 3.0 08/06/17 13:24 18 Nasal Cannula 4.0 36 08/06/17 13:24 90 18 98 Nasal Cannula 4.0 36 Intake and Output 08/06/17 08/07/17 19:00 07:00 Intake Total 300 ml 150 ml Output Total 1775 ml 950 ml Balance -1475 ml -800 ml Intake Oral 300 ml 150 ml Output Urine Total 1775 ml 950 ml # Voids 2 # Bowel Movements 1 Laboratory Tests Test 08/06/17 16:25 08/06/17 19:00 08/07/17 03:00 08/07/17 08:50 White Blood Count 5.2 K/UL (4.8-10.8) 5.8 K/UL (4.8-10.8) Red Blood Count 4.93 M/UL (4.70-6.10) 4.71 M/UL (4.70-6.10) Hemoglobin 13.9 G/DL (14.2-18.0) L 13.6 G/DL (14.2-18.0) L Hematocrit 41.6 % (42.0-52.0) L 39.8 % (42.0-52.0) L Mean Corpuscular Volume 84 FL (80-99) 85 FL (80-99) Mean Corpuscular Hemoglobin 28.3 PG (27.0-31.0) 28.8 PG (27.0-31.0) Mean Corpuscular Hemoglobin Concent 33.5 G/DL (32.0-36.0) 34.1 G/DL (32.0-36.0) Red Cell Distribution Width 12.8 % (11.6-14.8) 12.5 % (11.6-14.8) Platelet Count 152 K/UL (150-450) 147 K/UL (150-450) L Mean Platelet Volume 11.9 FL (6.5-10.1) H 10.6 FL (6.5-10.1) H Neutrophils (%) (Auto) % (45.0-75.0) % (45.0-75.0) Lymphocytes (%) (Auto) % (20.0-45.0) % (20.0-45.0) Monocytes (%) (Auto) % (1.0-10.0) % (1.0-10.0) Eosinophils (%) (Auto) % (0.0-3.0) % (0.0-3.0) Basophils (%) (Auto) % (0.0-2.0) % (0.0-2.0) Differential Total Cells Counted 100 Neutrophils % (Manual) 90 % (45-75) H Lymphocytes % (Manual) 6 % (20-45) L Monocytes % (Manual) 2 % (1-10) Eosinophils % (Manual) 0 % (0-3) Basophils % (Manual) 0 % (0-2) Band Neutrophils 2 % (0-8) Platelet Estimate Adequate Platelet Morphology Normal Red Blood Cell Morphology Normal Sodium Level 142 MMOL/L (136-145) 140 MMOL/L (136-145) Potassium Level 4.6 MMOL/L (3.5-5.1) 4.0 MMOL/L (3.5-5.1) Chloride Level 103 MMOL/L (98-107) 100 MMOL/L (98-107) Carbon Dioxide Level 31 MMOL/L (21-32) 29 MMOL/L (21-32) Anion Gap 8 mmol/L (5-15) 11 mmol/L (5-15) Blood Urea Nitrogen 39 mg/dL (7-18) H 47 mg/dL (7-18) H Creatinine 2.0 MG/DL (0.55-1.30) H 2.6 MG/DL (0.55-1.30) H Estimat Glomerular Filtration Rate mL/min (>60) mL/min (>60) Glucose Level 219 MG/DL (74-106) H 201 MG/DL (74-106) H Hemoglobin A1c 6.4 % (4.3-6.0) H Calcium Level 9.7 MG/DL (8.5-10.1) 9.4 MG/DL (8.5-10.1) Magnesium Level 1.8 MG/DL (1.8-2.4) 1.5 MG/DL (1.8-2.4) L Triglycerides Level 77 MG/DL (30-150) Cholesterol Level 162 MG/DL (< 200) LDL Cholesterol 103 mg/dL (<100) H HDL Cholesterol 49 MG/DL (40-60) Cholesterol/HDL Ratio 3.3 (3.3-4.4) Thyroid Stimulating Hormone (TSH) 0.588 uiU/mL (0.358-3.740) D-Dimer 0.29 mg/L FEU (0.00-0.49) Troponin I 1.723 ng/mL (0.000-0.056) 1.672 ng/mL (0.000-0.056) Pro-B-Type Natriuretic Peptide 5877 pg/mL (0-125) H Arterial Blood pH 7.390 (7.350-7.450) Arterial Blood Partial Pressure CO2 42.6 mmHg (35.0-45.0) Arterial Blood Partial Pressure O2 76.9 mmHg (75.0-100.0) Arterial Blood HCO3 25.5 mmol/L (22.0-26.0) Arterial Blood Oxygen Saturation 95.1 % (92.0-98.0) Arterial Blood Base Excess 0.4 John Test Positive Height (Feet): 6 Height (Inches): 2.00 Weight (Pounds): 172 Assessment/Plan Status: stable Assessment/Plan encephalopathy dementia with behavioral dist cont Seroquel provided saniya/Dex Edgar M.D. Aug 07, 2017 12:46
--- NOTE | 2017-08-07 12:48 | General Progress Note ---
Subjective Date patient seen: Aug 07, 2017 Neurologic/Psychiatric: Reports: anxiety Allergies: Coded Allergies: NO KNOWN ALLERGIES (Unverified Allergy, Unknown, 12/25/14) Objective Last 24 Hour Vital Signs Date Time Temp Pulse Resp B/P (MAP) Pulse Ox O2 Delivery O2 Flow Rate FiO2 08/07/17 08:27 105 20 98 Nasal Cannula 3.0 32 08/07/17 08:17 105 20 98 Nasal Cannula 3.0 32 08/07/17 08:15 98 Nasal Cannula 3.0 32 08/07/17 08:14 Nasal Cannula 3.0 32 08/07/17 08:00 99.0 101 19 141/89 99 Nasal Cannula 2.0 99.0 08/07/17 07:53 122 08/07/17 04:00 96.8 104 20 140/81 94 Nasal Cannula 3.0 96.8 08/07/17 03:41 106 08/07/17 02:12 Room Air 08/07/17 02:12 Room Air 08/07/17 00:00 97.9 100 24 147/87 97 Nasal Cannula 3.0 97.9 08/07/17 00:00 97 08/06/17 23:11 Facial 35 08/06/17 20:00 98.0 105 24 146/84 98 Nasal Cannula 3.0 98.0 08/06/17 19:59 102 18 99 Nasal Cannula 3.0 32 08/06/17 19:49 98 Nasal Cannula 3.0 32 08/06/17 19:49 102 18 98 Nasal Cannula 3.0 32 08/06/17 19:49 Nasal Cannula 3.0 32 08/06/17 19:03 102 08/06/17 16:00 85 08/06/17 16:00 97.5 91 20 135/83 100 Nasal Cannula 3.0 97.5 08/06/17 13:39 90 18 96 Nasal Cannula 3.0 32 08/06/17 13:34 98 3.0 08/06/17 13:24 90 18 Nasal Cannula 4.0 36 08/06/17 13:24 90 18 98 Nasal Cannula 4.0 36 Intake and Output 08/06/17 08/07/17 19:00 07:00 Intake Total 300 ml 150 ml Output Total 1775 ml 950 ml Balance -1475 ml -800 ml Intake Oral 300 ml 150 ml Output Urine Total 1775 ml 950 ml # Voids 2 # Bowel Movements 1 Laboratory Tests 08/06/17 16:25: White Blood Count 5.2, Red Blood Count 4.93, Hemoglobin 13.9L, Hematocrit 41.6L , Mean Corpuscular Volume 84, Mean Corpuscular Hemoglobin 28.3, Mean Corpuscular Hemoglobin Concent 33.5, Red Cell Distribution Width 12.8, Platelet Count 152, Mean Platelet Volume 11.9H, Neutrophils (%) (Auto) , Lymphocytes (%) (Auto) , Monocytes (%) (Auto) , Eosinophils (%) (Auto) , Basophils (%) (Auto) , Differential Total Cells Counted 100, Neutrophils % (Manual) 90H, Lymphocytes % (Manual) 6L, Monocytes % (Manual) 2, Eosinophils % (Manual) 0, Basophils % ( Manual) 0, Band Neutrophils 2, Platelet Estimate Adequate, Platelet Morphology Normal, Red Blood Cell Morphology Normal, Sodium Level 142, Potassium Level 4.6 , Chloride Level 103, Carbon Dioxide Level 31, Anion Gap 8, Blood Urea Nitrogen 39H, Creatinine 2.0H, Estimat Glomerular Filtration Rate , Glucose Level 219H, Hemoglobin A1c 6.4H, Calcium Level 9.7, Magnesium Level 1.8, Triglycerides Level 77, Cholesterol Level 162, LDL Cholesterol 103H, HDL Cholesterol 49, Cholesterol/HDL Ratio 3.3, Thyroid Stimulating Hormone (TSH) 0.588 08/06/17 19:00: D-Dimer 0.29, Troponin I 1.723H 08/07/17 03:00: White Blood Count 5.8, Red Blood Count 4.71, Hemoglobin 13.6L, Hematocrit 39.8L , Mean Corpuscular Volume 85, Mean Corpuscular Hemoglobin 28.8, Mean Corpuscular Hemoglobin Concent 34.1, Red Cell Distribution Width 12.5, Platelet Count 147L, Mean Platelet Volume 10.6H, Neutrophils (%) (Auto) , Lymphocytes (% ) (Auto) , Monocytes (%) (Auto) , Eosinophils (%) (Auto) , Basophils (%) (Auto) , Sodium Level 140, Potassium Level 4.0, Chloride Level 100, Carbon Dioxide Level 29, Anion Gap 11, Blood Urea Nitrogen 47H, Creatinine 2.6H, Estimat Glomerular Filtration Rate , Glucose Level 201H, Calcium Level 9.4, Magnesium Level 1.5L, Troponin I 1.672H, Pro-B-Type Natriuretic Peptide 5877H 08/07/17 08:50: Arterial Blood pH 7.390, Arterial Blood Partial Pressure CO2 42.6, Arterial Blood Partial Pressure O2 76.9, Arterial Blood HCO3 25.5, Arterial Blood Oxygen Saturation 95.1, Arterial Blood Base Excess 0.4, John Test Positive Height (Feet): 6 Height (Inches): 2.00 Weight (Pounds): 172 General Appearance: no apparent distress, alert, confused Dex Bobby M.D. Aug 07, 2017 12:48
--- NOTE | 2017-08-08 12:35 | Discharge Summary ---
Discharge Summary Discharge Summary Discharge Summary DATE OF ADMISSION: 08/06/2012 DATE OF DISCHARGE/signed again medical advice: 08/07/2017 REASON FOR ADMISSION: 76 years old male with past history of smoking, asthma versus COPD, currently only on Pro Air as needed presented with shortness of breath for one day. Upon evaluation in emergency department vital signs were stable. Supplemental oxygen was provided via nasal cannula , and pulse oximetry was stable on O2 4 L via nasal cannula. No leukocytosis. Troponin was elevated- 2.588. Creatinine -1.9 BUN- 41, proBNP- 4783. Urinalysis +3 protein. Chest x-ray revealed patchy bilateral infiltrates concerning for pulmonary edema versus infectious infiltrates. ABG on 4 L oxygen via nasal cannula revealed PCO2 above 45 and O2 sat 91% . In emergency department patient was given Lasix, aspirin and sublingual nitroglycerin. Patient was started on steroids. Nebulizing treatment with Duoneb was provided. EKG revealed ST depression in leads V4 V5 and V6 and showed some premature atrial contractions. Patient started on Lovenox for treatment of possible NSTEMI. Patient was admitted to [facility] for further management with diagnosis of elevated troponin, probably NSTEMI , acute systolic congestive heart failure, COPD/asthma exacerbation, acute kidney injury, acute respiratory failure with hypoxia, pulmonary HTN, possible pneumonia CONSULTANTS: toy assembly supervisor pulmonary Dr. Pineda psychiatrist [facility]SE: Patient admitted to direct observational unit. Patient started on Lovenox for treatment of possible NSTEMI. Cardiology and pulmonology consults were requested. Serial troponin were followed. Troponin was trending down , however still elevated, the last one- 1.67. ECHO was ordered and was pending. Venous duplex BLE showed no evidence of acute DVT. D-dimer was within normal limits. Per toy assembly supervisor patient had no chest pain, but had shortness of breath which could be angina equivalent. EKG showed widespread ST-T wave abnormalities. [employer]ision Farm[employer] Coordinator recommended continue aspirin and Lovenox, and hold beta blockers due to wheezing. Patient was on sublingual nitroglycerin. Lipitor was added to cardiovascular regimen. Per cardio, if troponin levels became significantly elevated, patient would need cardiac catheterization. Patient was on IV diuresis with the Lasix 40 mg twice a day for congestive heart failure with close monitoring of cardiorenal parameters and volumes. Clod Puller closely followed. Supplemental oxygen was titrated to keep pulse oximetry above 92%. Pulmonary toilet was provided with Levalbuterol and Atrovent. Patient was started on the intravenous steroids twice a day with plan to taper as soon as permissible. Patient was started on empiric antibiotics for possible pneumonia. Aspiration precautions were maintained. CT of the chest was ordered. Psychiatrist closely followed the patient. Psychiatrist diagnosed patient with encephalopathy and dementia with behavioral disturbances. She recommended to continue Seroquel. In the morning on patient decided to sign AGAINST MEDICAL ADVICE. Daughter was at the bedside. The risks and consequences of signing AGAINST MEDICAL ADVICE were discussed with patient and his daughter in detail. Both verbalized understanding, nevertheless patient signed AMA form and left. FINAL DIAGNOSES: acute hypoxemic and hypercapnic respiratory failure acute systolic congestive heart failure elevated troponin likely secondary to demand ischemia versus acute coronary syndrome probably NSTEMI acute asthma/ COPD exacerbation possible pneumonia pulmonary hypertension acute kidney injury , possible cardiorenal syndrome encephalopathy dementia with behavioral disturbances I have been assigned to dictate discharge summary for this account. I was not involved in the patient's management. Akbar QureshiMinal murillo NP Aug 08, 2017 12:35
--- NOTE | 2017-08-10 08:29 | Cardiology Report ---
APPROVED REPORT EXAM: Two-dimensional and M-mode echocardiogram with Doppler and color Doppler. INDICATION Congestive Heart Failure M-Mode DIMENSIONS IVSd1.5 (0.7-1.1cm)Left Atrium (MM)3.7 (1.6-4.0cm) LVDd5.7 (3.5-5.6cm)Aortic Root3.5 (2.0-3.7cm) PWd1.7 (0.7-1.1cm)Aortic Cusp Exc.2.3 (1.5-2.0cm) LVDs4.7 (2.5-4.0cm) PWs2.0 cm Left ventricular enlargement. Global left ventricular hypokinesis. Mid to distal anteroseptal akinesis. Mid to distal inferior akinesis. Apical akinesis. Left ventricular ejection fraction estimated to be 35-40 %. Mild to moderate left ventricular hypertrophy. No evidence of pericardial effusion. Severe left atrial enlargement. Right cardiac chamber sizes are within normal limits. Focal aortic valve sclerosis with adequate cusp excursion. Thickened mitral valve leaflets with normal excursion. Mitral annulus and aortic root calcification. Normal pulmonic valve structure. Normal tricuspid valve structure. IVC dilated at 2.5 cm with slight physiologic collapse suggestive of increased RA pressure. A color flow and spectral Doppler study was performed and revealed: Mild to moderate aortic regurgitation. Moderate to severe mitral regurgitation. Mitral inflow velocities indicates possible pseudo normalization pattern implying moderately elevated left atrial pressure (Grade II ). Moderate tricuspid regurgitation. Tricuspid systolic velocities suggests peak right ventricular systolic pressure of 76 mmHg, consistent with severe pulmonary hypertension. Pulmonic regurgitation present.
== END 2017-08-07 10:40 | disposition left against medical advice (07) | DRG 280 ==
LOC: EDBD 04:45 → EMR 04:55 → 2E 05:37 → EDBEDREQ 06:14 → 2W 10:04
DX: I13.0 Hypertensive heart and chronic kidney disease with heart failure and stage 1 through stage 4 chronic kidney disease, or unspecified chronic kidney disease (principal); J96.01 Acute respiratory failure with hypoxia; I21.4 Non-ST elevation (NSTEMI) myocardial infarction; I50.21 Acute systolic (congestive) heart failure; J18.9 Pneumonia, unspecified organism; G93.40 Encephalopathy, unspecified; J96.02 Acute respiratory failure with hypercapnia; J44.1 Chronic obstructive pulmonary disease with (acute) exacerbation; N17.9 Acute kidney failure, unspecified; F03.91 Unspecified dementia, unspecified severity, with behavioral disturbance; I27.20 Pulmonary hypertension, unspecified; N18.9 Chronic kidney disease, unspecified; Z87.891 Personal history of nicotine dependence
CPT/HCPCS: 36415; 36600; 71045; 80048; 80053; 80061; 81003; 82803; 82962; 83036; 83605; 83735; 83880; 84443; 84484; 85007; 85025; 85379; 85610; 85730; 87040; 93005; 93306; 93970; 94640; 94660; 94664; 94760; 99291; J7620